=== PATIENT | female | born 1940 | race Hispanic/Latino ===

== ENCOUNTER 2017-08-07 12:22 | Inpatient (IN) | payer SELFPAY ==
[~2017-08-07] VITALS: Ht 152.4 cm; Wt 69.4 kg
[2017-08-07] VITALS (11 sets, daily range): BP systolic 120–145; BP diastolic 58–90
[2017-08-07] MEDS ORDERED: ISOVUE-370 50ML VIAL IV ONE (14:47)
[2017-08-07] MEDS ORDERED: IOPAMIDOL-370 100 ML VIAL IV ONE (14:47)
[2017-08-07] MEDS ORDERED: LIDOCAINE HCL 2% 20ML ONE (14:47)
[2017-08-07] MEDS ORDERED: BIVALIRUDIN 250 MG/VIAL IV ONE (14:47)
[2017-08-07] MEDS ORDERED: NITROGLYCERIN 5 MG/ML 10 ML VIAL IV ONE (14:51)
[2017-08-07] MEDS ORDERED: METOPROLOL TARTRATE 1 MG/ML 5ML VIAL IV PRN (15:30)
[2017-08-08 03:43] VITALS: BP 102/57
[2017-08-08 07:29] VITALS: BP 132/55
[2017-08-08] MEDS ORDERED: PRAV20TA4 PO (10:55)
[2017-08-08] MEDS ORDERED: METO100T14 PO (10:55)
[2017-08-08] MEDS ORDERED: ISOS10TA2 PO (10:55)
[2017-08-08] MEDS ORDERED: CLOP75TA14 PO (10:55)
[2017-08-08 11:02] VITALS: BP 120/65
[2017-08-08] MEDS ORDERED: [UNRECOGNIZED DRUG - OTHER] PO (11:07)
[2017-08-08] MEDS ORDERED: [UNRECOGNIZED DRUG - OTHER] PO (11:07)
[2017-08-08] MEDS ORDERED: CEFUROXIME SODIUM 1.5 GM VIAL IVP SCH (13:30)
[2017-08-08 14:21] LABS: APPEARANCE,URINE Clear (CLEAR); BILIRUBIN,URINE Negative (NEGATIVE); COLOR,URINE Yellow (YELLOW); GLUCOSE, URINE (UA) Negative (NEGATIVE); KETONES,URINE Negative (NEGATIVE); LEUKOCYTE ESTERASE ,URINE Small (NEGATIVE); NITRATE,URINE Negative (NEGATIVE); OCCULT BLOOD,URINE Small (NEGATIVE); PROTEIN,URINE Negative (NEGATIVE); UROBILINOGEN,URINE 0.2 mg/dL (0.2-1.0)
[2017-08-08 14:35] LABS: BACTERIA,URINE None Seen /HPF (None Seen); RBC,URINE 0-1 /HPF (0-1)
[2017-08-08] MEDS: ASPIRIN 81 MG EC TAB PO SCH (15:36)
[2017-08-08 16:04] VITALS: BP 152/68
[2017-08-08 19:29] VITALS: BP 123/58
[2017-08-08] MEDS ORDERED: ATORVASTATIN CALCIUM 20 MG TABLET PO SCH (21:00)
[2017-08-08] MEDS: METOPROLOL TARTRATE 25 MG TAB PO SCH (22:25)
[2017-08-09 00:05] VITALS: BP 141/57
[2017-08-09] MEDS: ISOSORBIDE MONO 30MG TAB SR PO SCH ×2 (00:12→08:41)
[2017-08-09 03:54] VITALS: BP 104/58
[2017-08-09 06:19] LABS: BASOPHILS % (AUTO) 0.4 % (0.0-5.0); EOSINOPHILS % (AUTO) 0.1 % (0.0-8.0); HEMATOCRIT 40.5 % (36-48); LYMPHOCYTES % (AUTO) 36.4 % (21.0-51.0); MEAN CORPUSCULAR HEMOGLOBIN 30.4 pg (27.0-33.0); MEAN CORPUSCULAR HGB CONC 34.2 g/dL (32.0-36.0); MEAN CORPUSCULAR VOLUME 88.7 fL (79-99); MONOCYTES % (AUTO) 10.4 % (3.0-13.0); NEUTROPHILS % (AUTO) 52.7 % (40.0-77.0); PLATELET COUNT (AUTO) 253 K/uL (130-400); RED BLOOD CELL COUNT(AUTO) 4.57 MIL/uL (4.00-5.50); RED CELL DISTRIBUTION WIDTH 13.7 % (11.0-15.5); WHITE BLOOD COUNT (AUTO) 8.9 K/uL (4.8-10.8)
[2017-08-09 06:38] LABS: POTASSIUM 4.5 mmol/L (3.5-5.1)
[2017-08-09 06:44] LABS: HEMOGLOBIN A1C 6.1 % (4.0-6.0)
[2017-08-09 07:30] VITALS: BP 133/73
[2017-08-09] MEDS: ASPIRIN 81 MG EC TAB PO SCH (08:41)
[2017-08-09] MEDS: METOPROLOL TARTRATE 25 MG TAB PO SCH (08:42)
[2017-08-09 11:16] VITALS: BP 126/67
[2017-08-09 16:14] VITALS: BP 129/54
[2017-08-10] MEDS ORDERED: CEFUROXIME 1.5GM+NS 100ML 100 ML IV SCH (11:00)
== END 2017-08-09 17:00 | disposition home or self-care (01) | DRG 287 ==
LOC: 2DH 13:57
PROVIDERS: ADMIT Internal Medicine Nephrology; ATTEND Internal Medicine Nephrology
PROC: 4A023N7 Measurement of Cardiac Sampling and Pressure, Left Heart, Percutaneous Approach (ICD-10-PCS; principal; 2017-08-07)
PROC: B2151ZZ Fluoroscopy of Left Heart using Low Osmolar Contrast (ICD-10-PCS; 2017-08-07)
PROC: B2111ZZ Fluoroscopy of Multiple Coronary Arteries using Low Osmolar Contrast (ICD-10-PCS; 2017-08-07)
DX: I25.110 Atherosclerotic heart disease of native coronary artery with unstable angina pectoris (principal); D62 Acute posthemorrhagic anemia; I25.82 Chronic total occlusion of coronary artery; I50.42 Chronic combined systolic (congestive) and diastolic (congestive) heart failure; E78.5 Hyperlipidemia, unspecified; I25.5 Ischemic cardiomyopathy
CPT/HCPCS: 36415; 71045; 80048; 80061; 81001; 83036; 85025; 86850; 86900; 86901; 86922; 93458; 93880; 94010; C1894; J0583; J1644; J3490; Q9967